=== PATIENT | female | born 1985 | race Caucasian/White ===

== ENCOUNTER 2017-08-02 23:29 | Emergency (ER) | payer OTHER ==
--- NOTE | 2017-08-03 02:00 | ED ---
Neck Pain - HPI Summary HPI Summary: 32-year-old female presents with neck stiffness and headache today. She states she had an injection at the pain clinic cortisone and lidocaine. She states this is the first she has had this injection. She states that she developed a headache right after the injection. She states she told the pain clinic and they said it was likely due to position. She states that since then she feels like her neck is stiff. She denies any fever. She denies any photophobia. She denies any redness of the area. She states she gets headaches and pain due to postconcussive syndrome. The pain is constant. She states she has not developed a migraine yet. She took some ibuprofen but vomited it up. She took a muscle relaxer. She denies any weakness. She denies any numbness or tingling. She states that this headache is similar to her previous headaches. - History of Current Complaint Chief Complaint: EDNeckComplaint Stated Complaint: CRAMPING/HEADACHE Time Seen by Provider: 08/03/17 01:46 Pain Intensity: 8 - Allergies/Home Medications Allergies/Adverse Reactions: Allergies Allergy/AdvReac Type Severity Reaction Status Date / Time No Known Allergies Allergy Verified 12/16/16 15:42 PMH/Surg Hx/FS Hx/Imm Hx Endocrine/Hematology History: Denies: Hx Diabetes Cardiovascular History: Denies: Hx Hypertension, Hx Pacemaker/ICD Respiratory History: Denies: Hx Asthma History: Denies: Hx Renal Disease Sensory History: Denies: Hx Hearing Aid Psychiatric History: Denies: Hx Panic Disorder - Surgical History Surgery Procedure, Year, and Place: C-SECTIONS; ECTOPIC LAP; SCAR TISSUE FROM REMOVED WITH LAP PROCEDURE; Infectious Disease History: No Infectious Disease History: Denies: Traveled Outside the [place] in Last 30 Days - Family History Known Family History: Positive: Hypertension - Social History Substance Use Type: Reports: None Smoking Status (MU): Never Smoked Tobacco Review of Systems Negative: Fever Negative: Chest Pain Negative: Shortness Of Breath Positive: Myalgia - neck pain Positive: Headache All Other Systems Reviewed And Are Negative: Yes Physical Exam Triage Information Reviewed: Yes Vital Signs On Initial Exam: Initial Vitals Temp Pulse Resp BP Pulse Ox 97.5 F 99 20 119/83 99 08/02/17 23:31 08/02/17 23:31 08/02/17 23:31 08/02/17 23:31 08/02/17 23:31 Vital Signs Reviewed: Yes Appearance: Positive: Pain Distress Skin: Positive: Warm, Dry Head/Face: Positive: Normal Head/Face Inspection Eyes: Positive: Normal, EOMI - with nystagmus, NAY, Conjunctiva Clear ENT: Positive: Normal ENT inspection, Pharynx normal, TMs normal Respiratory/Lung Sounds: Positive: Clear to Auscultation, Breath Sounds Present Cardiovascular: Positive: Normal, RRR Musculoskeletal: Positive: Limited @ - neck due to pain, Other - tenderness from occipital down to midthoracic to shoulders over trapezius muscles, no redness at injection area Neurological: Positive: Sensory/Motor Intact, Alert, Oriented to Person Place, Time, CN Intact II-III Diagnostics - Vital Signs Vital Signs Temp Pulse Resp BP Pulse Ox 08/02/17 23:31 97.5 F 99 20 119/83 99 - Laboratory Lab Statement: Any lab studies that have been ordered have been reviewed, and results considered in the medical decision making process. Neck Course/Dx - Course Course Of Treatment: 32-year-old female presents with neck stiffness and headache today. She states she had an injection at the pain clinic cortisone and lidocaine. She states this is the first she has had this injection. She states that she developed a headache right after the injection. She states she told the pain clinic and they said it was likely due to position. She states that since then she feels like her neck is stiff. She denies any fever. She denies any photophobia. She denies any redness of the area. She states she gets headaches and pain due to postconcussive syndrome. The pain is constant. She states she has not developed a migraine yet. She took some ibuprofen but vomited it up. She took a muscle relaxer. She denies any weakness. She denies any numbness or tingling. On exam tenderness over trapezius muscles. normal neuro exam with nystagmus of eye. will try toradol, zofran and valium. will have follow up with pain clinic. patient understand and agrees with plan. - Diagnoses Differential Dx/HQI/PQRI: Positive: Sprain, Strain, Other - migraine Provider Diagnoses: Neck pain, Headache Discharge - Discharge Plan Condition: Good Disposition: HOME Patient Education Materials: Neck Pain (ED) Referrals: Phil Monsivais MD [Primary Care Provider] - Additional Instructions: Follow-up with pain clinic take Tylenol and ibuprofen every 6 hours ice/heat area, move as tolerated. Return to ED if develop any new or worsening symptoms
[2017-08-03] MEDS ORDERED: Ondansetron ODT TAB* 4 MG PO ONE (02:08)
[2017-08-03] MEDS ORDERED: Diazepam TAB(*) 5 MG PO ONE (02:09)
[2017-08-03] MEDS ORDERED: Ketorolac INJ* 60 MG/2 ML VIAL IM ONE (02:09)
[2017-08-03 02:56] VITALS: BP 114/66
== END 2017-08-03 02:53 | disposition home or self-care (01) ==
LOC: ED 23:29
DX: M54.2 Cervicalgia (principal); R51 Headache
CPT/HCPCS: 96372; 99282; A9270-GY; J1885

== ENCOUNTER 2019-01-02 23:11 | Emergency (ER) | payer OTHER ==
[2019-01-02] MEDS ORDERED: Dexamethasone IV* 4 MG/ML 1 ML (4 MG) IV SLOW PU ONE (23:33)
[2019-01-02] MEDS ORDERED: Ketorolac INJ* 30 MG/ML 1 ML VIAL IV PUSH ONE (23:33)
[2019-01-02] MEDS ORDERED: Ondansetron INJ* 2 MG/ML VIAL IV ONE (23:33)
[2019-01-02] MEDS ORDERED: NS 0.9% 1000 ML** 1,000 ML IV ONE (23:35)
[2019-01-03] MEDS ORDERED: Diazepam TAB(*) 5 MG PO ONE ×2 (00:17→01:13)
--- NOTE | 2019-01-03 00:51 | ED ---
Headache - HPI Summary HPI Summary: 33 year old female presents with neck spasms and headache for the past couple days. States took sumatriptan and ibuprofen and Percocet at home with no relief. She is on baclofen. She states that headache starts in her neck and radiates into her head. This is not worst headache of life. She states she is very nauseous. She's been vomiting. She denies any fevers. No chills. No chest pain or shortness breath. No sore throat. No sinus congestion. States feels similar to her headaches in the past. She gets botox every 3 months. - History Of Current Complaint Chief Complaint: EDHeadache Stated Complaint: HEADACHE,MUSCLE SPASMS PER PT Time Seen by Provider: 01/02/19 23:23 - Allergies/Home Medications Allergies/Adverse Reactions: Allergies Allergy/AdvReac Type Severity Reaction Status Date / Time No Known Allergies Allergy Verified 01/02/19 23:16 PMH/Surg Hx/FS Hx/Imm Hx Endocrine/Hematology History: Reports: Hx Thyroid Disease Denies: Hx Diabetes Cardiovascular History: Denies: Hx Hypertension, Hx Pacemaker/ICD Respiratory History: Denies: Hx Asthma History: Denies: Hx Renal Disease Sensory History: Denies: Hx Hearing Aid Neurological History: Reports: Hx Headaches, Hx Migraine, Other Neuro Impairments/Disorders - postconcussion syndrome Psychiatric History: Reports: Hx Anxiety, Hx Attention Deficit Hyperactivity Disorder Denies: Hx Panic Disorder - Surgical History Surgery Procedure, Year, and Place: C-SECTIONS;. ECTOPIC LAP;. SCAR TISSUE FROM REMOVED WITH LAP PROCEDURE; Infectious Disease History: No Infectious Disease History: Denies: Traveled Outside the [place] in Last 30 Days - Family History Known Family History: Positive: Hypertension - Social History Alcohol Use: None Hx Substance Use: No Substance Use Type: Reports: None Hx Tobacco Use: No Smoking Status (MU): Never Smoked Tobacco Review of Systems Negative: Fever Negative: Chest Pain Negative: Shortness Of Breath Positive: Myalgia - neck spasms Positive: Headache All Other Systems Reviewed And Are Negative: Yes Physical Exam Triage Information Reviewed: Yes Vital Signs On Initial Exam: Initial Vitals Temp Pulse Resp BP Pulse Ox 97.1 F 95 16 129/98 99 01/02/19 23:13 01/02/19 23:13 01/02/19 23:13 01/02/19 23:13 01/02/19 23:13 Vital Signs Reviewed: Yes Appearance: Positive: Well-Appearing Skin: Positive: Warm, Dry Head/Face: Positive: Normal Head/Face Inspection Eyes: Positive: Normal, EOMI, NAY, Conjunctiva Clear ENT: Positive: Normal ENT inspection, Pharynx normal, TMs normal Neck: Positive: Other: - tenderness side of neck, ROM intact neck with pain. Negative: Nuchal Rigidity Respiratory/Lung Sounds: Positive: Clear to Auscultation, Breath Sounds Present Cardiovascular: Positive: Normal, RRR Abdomen Description: Positive: Nontender, Soft Bowel Sounds: Positive: Present Musculoskeletal: Positive: Normal Neurological: Positive: Sensory/Motor Intact, Alert, Oriented to Person Place, Time, CN Intact II-III Psychiatric: Positive: Normal Diagnostics - Vital Signs Vital Signs Temp Pulse Resp BP Pulse Ox 01/03/19 00:30 16 01/02/19 23:27 94 116/79 99 01/02/19 23:13 97.1 F 95 16 129/98 99 - Laboratory Lab Statement: Any lab studies that have been ordered have been reviewed, and results considered in the medical decision making process. Re-Evaluation - Re-Evaluation First Eval Change: Unchanged Comment: no change in pain, requesting valium which has worked in past Second Eval Re-Evaluation Time: 01:13 Change: Improved Comment: pain not resolved Third Eval Re-Evaluation Time: 01:37 Change: Improved Comment: pain is better Headache Course/Dx - Course Course Of Treatment: 33 year old female presents with neck spasms and headache for the past couple days. States took sumatriptan and ibuprofen and Percocet at home with no relief. She is on baclofen. She states that headache starts in her neck and radiates into her head. This is not worst headache of life. She states she is very nauseous. She's been vomiting. She denies any fevers. No chills. No chest pain or shortness breath. No sore throat. No sinus congestion. States feels similar to her headaches in the past. She gets botox every 3 months. On exam has normal neuro exam. Tenderness over the sides of neck. Full range of motion with pain. Gave Toradol Decadron and fluids no improvement. Gave Valium and some improvement but not completely resolved. gave another dose of valium and patient feels ready to go home. told to follow up with neurology. patient understand and agrees with plan. - Diagnoses Differential Diagnosis/HQI/PQRI: Migraine, Tension Headache, Viral Syndrome Provider Diagnoses: Headache, Neck muscle spasm Discharge - Sign-Out/Discharge Documenting (check all that apply): Patient Departure Patient Received Moderate/Deep Sedation with Procedure: No - Discharge Plan Condition: Good Disposition: HOME Patient Education Materials: Acute Headache (ED) Referrals: Fabiano lFowers MD [Medical Doctor] - Additional Instructions: continue normal pain medication apply heat Follow up with neurology Return to ED if develop any new or worsening symptoms - Billing Disposition and Condition Condition: GOOD Disposition: Home
[2019-01-03 01:54] VITALS: BP 111/78
== END 2019-01-03 01:53 | disposition home or self-care (01) ==
LOC: ED 23:11
DX: M62.838 Other muscle spasm (principal); R51 Headache
CPT/HCPCS: 96361; 96374; 96375; 99282; A9270-GY; J1100; J1885; J2405